=== PATIENT | male | born 1990 | race Caucasian/White ===

== ENCOUNTER 2017-03-14 18:01 | Inpatient (IN) | payer SELFPAY ==
[~2017-03-14] VITALS: Ht 177.8 cm; Wt 74.8 kg
[~2017-03-14 18:01] MED LIST: ZOFR4TAB3 SL
[2017-03-14 18:03] VITALS: BP 132/78; PULSE 84; RESP 16; TEMP 98.4; O2SAT 100
[2017-03-14] MEDS ORDERED: TETANUS/DIPHTHERIA TOXOID ADULT 0.5 ML VIAL IM ONE (19:30)
[2017-03-14] MEDS ORDERED: IBUPROFEN 800 MG TAB PO ONE (19:30)
--- NOTE | 2017-03-14 19:33 | PD ---
HPI Chief Complaint: Skin Problem Time Seen by Provider: 19:08 Travel History International Travel<30 days: No Contact w/Intl Traveler<30days: No Traveled to known affect area: No History of Present Illness HPI 27-year-old male with no significant medical history presents to emergency department for evaluation of injury sustained to his right foot. Patient was in the water when he stepped on an oyster bed. Oyster shell broke off in his foot. He went to the urgent care, x-ray imaging was complete, and they sent him here to the emergency department for further evaluation. Patient reports severe pain, exacerbated with ambulation of the right foot. It is constant. It does not radiate anywhere. Patient is not up-to-date on his tetanus vaccination. Patient last ate over 8 hours ago. He has no other symptoms to report. [facility] Past Medical History Medical History: Denies Significant Hx Diminished Hearing: No Past Surgical History Surgical History: No Previous Surgery Social History Alcohol Use: Yes (rarely) Tobacco Use: Yes (1/2 ppd) Substance Use: No Allergies-Medications (Allergen,Severity, Reaction): Coded Allergies: penicillin G (Unverified Allergy, Unknown, 03/14/17) Reported Meds & Prescriptions Reported Meds & Active Scripts Active No Active Prescriptions or Reported Medications Review of Systems Except as stated in HPI: all other systems reviewed are Neg Physical Exam Narrative GENERAL: Well-nourished male patient, ambulatory no acute distress SKIN: Focused skin assessment warm/dry. 1-1/2 cm laceration on the plantar surface of the right midfoot. Bleeding is controlled. HEAD: Atraumatic. Normocephalic. EYES: Pupils equal and round. No scleral icterus. No injection or drainage. ENT: No nasal bleeding or discharge. Mucous membranes pink and moist. NECK: Trachea midline. No JVD. CARDIOVASCULAR: Regular rate and rhythm. No murmur appreciated. RESPIRATORY: No accessory muscle use. Clear to auscultation. Breath sounds equal bilaterally. GASTROINTESTINAL: Abdomen soft, non-tender, nondistended. Hepatic and splenic margins not palpable. MUSCULOSKELETAL: No obvious deformities. No clubbing. No cyanosis. No edema. Flexion of the foot elicits pain, there is tenderness with palpation around the laceration site. Distal pulses are palpable. Cap refills within normal limits. NEUROLOGICAL: Awake and alert. No obvious cranial nerve deficits. Motor grossly within normal limits. Normal speech. PSYCHIATRIC: Appropriate mood and affect; insight and judgment normal. Data Data Last Documented VS Vital Signs Date Time Temp Pulse Resp B/P (MAP) Pulse Ox O2 Delivery O2 Flow Rate FiO2 03/14/17 18:03 98.4 84 16 132/78 (96) 100 Room Air Orders Orders Foot, Limited (2vws) (03/14/17 ) Tetanus/Diphtheria Tox Adult (Tetanus/Di (03/14/17 19:30) Ibuprofen (Motrin) (03/14/17 19:30) Iv Access Insert/Monitor (03/14/17 20:19) Complete Blood Count With Diff (03/14/17 20:19) Basic Metabolic Panel (Bmp) (03/14/17 20:19) Coag Profile (03/14/17 20:19) Npo After Midnight W/ Po Meds (03/15/17 Breakfast) Consult Podiatry (03/14/17 ) Ct Foot W/O Contrast (03/14/17 ) Morphine Inj (Morphine Inj) (03/14/17 20:30) Ondansetron Inj (Zofran Inj) (03/14/17 20:30) Levofloxacin 750 Mg Premix Inj (Levaquin (03/14/17 21:00) Labs Laboratory Tests Test 03/14/17 20:30 White Blood Count 12.3 TH/MM3 Red Blood Count 4.86 MIL/MM3 Hemoglobin 14.8 GM/DL Hematocrit 43.1 % Mean Corpuscular Volume 88.6 FL Mean Corpuscular Hemoglobin 30.4 PG Mean Corpuscular Hemoglobin Concent 34.3 % Red Cell Distribution Width 12.9 % Platelet Count 281 TH/MM3 Mean Platelet Volume 8.9 FL Neutrophils (%) (Auto) 68.5 % Lymphocytes (%) (Auto) 20.0 % Monocytes (%) (Auto) 8.5 % Eosinophils (%) (Auto) 2.1 % Basophils (%) (Auto) 0.9 % Neutrophils # (Auto) 8.4 TH/MM3 Lymphocytes # (Auto) 2.5 TH/MM3 Monocytes # (Auto) 1.0 TH/MM3 Eosinophils # (Auto) 0.3 TH/MM3 Basophils # (Auto) 0.1 TH/MM3 CBC Comment DIFF FINAL Differential Comment Prothrombin Time 11.1 SEC Prothromb Time International Ratio 1.0 RATIO Activated Partial Thromboplast Time 26.9 SEC Blood Urea Nitrogen 14 MG/DL Creatinine 0.97 MG/DL Random Glucose 78 MG/DL Calcium Level 8.8 MG/DL Sodium Level 140 MEQ/L Potassium Level 3.9 MEQ/L Chloride Level 103 MEQ/L Carbon Dioxide Level 30.5 MEQ/L Anion Gap 7 MEQ/L Estimat Glomerular Filtration Rate 94 ML/MIN MDM Medical Decision Making Medical Screen Exam Complete: Yes Emergency Medical Condition: Yes Medical Record Reviewed: Yes Differential Diagnosis Laceration superficial versus deep versus foreign body versus tendon injury Narrative Course 27-year-old male presents prescribed for evaluation of a foreign body in his right foot. Patient stepped on an oyster shell approximately 2 hours ago. X- ray imaging is complete. Patient is updated on his tetanus vaccination and treated for pain. Last Impressions Lower Extremity CT 03/14/17 0000 Signed Impressions: Service Date/Time: Tuesday, March 14, 2017 20:55 - CONCLUSION: Relatively large collection of foreign bodies in the plantar soft tissues of the right mid foot as described above. The deep margin of the foreign bodies is 22 mm beneath the skin and embedded within the flexor digitorum brevis muscle belly. Felix Corona MD Foot X-Ray 03/14/17 0000 Signed Impressions: Service Date/Time: Tuesday, March 14, 2017 19:34 - CONCLUSION: Conglomerate of radiopaque foreign bodies in the plantar soft tissues of the right midfoot. Felix Corona MD I discussed the patient with my attending physician who recommends Levaquin for vibrio coverage. I have discussed the patient with Dr. Campos, podiatry jewelry consultant. He requests an antibiotic coverage, admission to medicine, nothing by mouth after midnight for surgical intervention tomorrow morning. Plan is discussed with the patient and his mother. They are in agreement with this plan of care. Labs ordered for preop clearance. Laboratory Tests Test 03/14/17 20:30 White Blood Count 12.3 TH/MM3 Red Blood Count 4.86 MIL/MM3 Hemoglobin 14.8 GM/DL Hematocrit 43.1 % Mean Corpuscular Volume 88.6 FL Mean Corpuscular Hemoglobin 30.4 PG Mean Corpuscular Hemoglobin Concent 34.3 % Red Cell Distribution Width 12.9 % Platelet Count 281 TH/MM3 Mean Platelet Volume 8.9 FL Neutrophils (%) (Auto) 68.5 % Lymphocytes (%) (Auto) 20.0 % Monocytes (%) (Auto) 8.5 % Eosinophils (%) (Auto) 2.1 % Basophils (%) (Auto) 0.9 % Neutrophils # (Auto) 8.4 TH/MM3 Lymphocytes # (Auto) 2.5 TH/MM3 Monocytes # (Auto) 1.0 TH/MM3 Eosinophils # (Auto) 0.3 TH/MM3 Basophils # (Auto) 0.1 TH/MM3 CBC Comment DIFF FINAL Differential Comment Prothrombin Time 11.1 SEC Prothromb Time International Ratio 1.0 RATIO Activated Partial Thromboplast Time 26.9 SEC Blood Urea Nitrogen 14 MG/DL Creatinine 0.97 MG/DL Random Glucose 78 MG/DL Calcium Level 8.8 MG/DL Sodium Level 140 MEQ/L Potassium Level 3.9 MEQ/L Chloride Level 103 MEQ/L Carbon Dioxide Level 30.5 MEQ/L Anion Gap 7 MEQ/L Estimat Glomerular Filtration Rate 94 ML/MIN Lab work is without acute concern. [facility] Diagnosis Primary Impression: Laceration of right foot with foreign body Qualified Codes: S91.321A - Laceration with foreign body, right foot, initial encounter Scripts No Active Prescriptions or Reported Meds Condition: Stable Esme Jones Mar 14, 2017 19:33
--- NOTE | 2017-03-14 20:04 | RADRPT ---
EXAM DATE/TIME: 03/14/2017 19:34 [facility] COMPARISON: No previous studies available for comparison. INDICATIONS : Right foot foreign body after stepping on a shell. MEDICAL HISTORY : None. SURGICAL HISTORY : None. ENCOUNTER: Initial ACUITY: 1 day PAIN SCORE: 10/10 LOCATION: Right mid foot. FINDINGS: Several radiopaque foreign body fragments are seen in the plantar aspect of the mid foot soft tissues . The largest foreign body is approximately 10 x 20 mm in size and is approximately 4 mm beneath the skin. Its deep margin is just a few millimeters away from the base of the third metatarsal. CONCLUSION: Conglomerate of radiopaque foreign bodies in the plantar soft tissues of the right midfoot. Felix Corona MD on March 14, 2017 at 20:02 Board Certified Radiologist. This report was verified electronically.
[2017-03-14] MEDS ORDERED: MORPHINE SULFATE 4 MG/ML INJ IV PUSH ONE (20:30)
[2017-03-14] MEDS ORDERED: ONDANSETRON HCL 4 MG/2 ML VIAL IV PUSH ONE (20:30)
[2017-03-14] MEDS ORDERED: LEVOFLOXACIN 750 MG PREMIX INJ 150 ML IV ONE (21:00)
[2017-03-14 21:36] LABS: AUTOMATED NEUTROPHIL # 8.4 TH/MM3 (1.8-7.7); BASOPHIL # 0.1 TH/MM3 (0-0.2); BASOPHIL % 0.9 % (0.0-2.0); EOSINOPHIL # 0.3 TH/MM3 (0-0.4); EOSINOPHIL % 2.1 % (0.0-4.0); HEMATOCRIT 43.1 % (39.0-51.0); HEMO FLAGS DIFF FINAL; LYMPHOCYTE # 2.5 TH/MM3 (1.0-4.8); MEAN CELL VOLUME 88.6 FL (80.0-100.0); MEAN CORPUSCULAR HEMOGLOBIN 30.4 PG (27.0-34.0); MEAN CORPUSCULAR HGB CONC 34.3 % (32.0-36.0); MONO % 8.5 % (0.0-8.0); NEUT % 68.5 % (16.0-70.0); PLATELET COUNT 281 TH/MM3 (150-450); RED BLOOD COUNT 4.86 MIL/MM3 (4.50-5.90); RED CELL DISTRIBUTION WIDTH 12.9 % (11.6-17.2); WHITE BLOOD COUNT 12.3 TH/MM3 (4.0-11.0)
--- NOTE | 2017-03-14 21:41 | RADRPT ---
EXAM DATE/TIME: 03/14/2017 20:55 [facility] COMPARISON: No previous studies available for comparison. INDICATIONS : Evaluate foriegn body. RADIATION DOSE: 7.29 CTDIvol (mGy) MEDICAL HISTORY : None SURGICAL HISTORY : None. ENCOUNTER: Initial ACUITY: 1 day PAIN SCALE: 10/10 LOCATION: Right foot TECHNIQUE: Volumetric scanning of the foot was performed. Using automated exposure control and adjustment of th e mA and/or kV according to patient size, radiation dose was kept as low as reasonably achievable to obtain optimal diagnostic quality images. DICOM format image data is available electronically for re view and comparison. FINDINGS: An irregular collection of radiopaque foreign bodies measuring roughly 9 x 9 x 19 mm in size is seen in the plantar soft tissues of the right midfoot. The foreign bodies are plantar to the lateral cunei form and cuboid. Superficial margin of the foreign bodies just beneath the skin. The deep margin of t he foreign bodies is approximately 2.2 cm deep to the skin and 5 mm away from the cuboid, embedded in the flexor digitorum brevis muscle belly. No fracture seen. 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 CONCLUSION: Relatively large collection of foreign bodies in the plantar soft tissues of the right mid foot as de scribed above. The deep margin of the foreign bodies is 22 mm beneath the skin and embedded within th e flexor digitorum brevis muscle belly. Felix Corona MD on March 14, 2017 at 21:35 Board Certified Radiologist. This report was verified electronically.
[2017-03-14 21:46] LABS: APTT (PATIENT) 26.9 SEC (24.3-30.1); PROTHROMBIN TIME - PATIENT 11.1 SEC (9.8-11.6)
[2017-03-14 21:58] LABS: BICARBONATE 30.5 MEQ/L (21.0-32.0); POTASSIUM 3.9 MEQ/L (3.5-5.1)
[2017-03-14] MEDS ORDERED: NALOXONE HCL 0.4 MG/ML AMP IV PUSH PRN (22:30)
[2017-03-14] MEDS ORDERED: SODIUM CHLORIDE 0.9% FLUSH 10 ML FLUSH IV FLUSH PRN (22:30)
[2017-03-14] MEDS: SODIUM CHLOR 0.9% 1000 ML INJ 1,000 ML IV SCH (23:24)
[2017-03-15] VITALS (7 sets, daily range): BP systolic 106–120; BP diastolic 57–75; PULSE 53–80; RESP 16–20; TEMP 97.3–98; O2SAT 99–100
[2017-03-15] MEDS: MORPHINE SULFATE 4 MG/ML INJ IV PUSH PRN ×2 (01:37→22:21)
--- NOTE | 2017-03-15 02:02 | HHI.HP ---
[facility] Service [facility] Primary Care Physician No Primary Care Physician Admission Diagnosis FOREIGN BODIES R FOOT Diagnoses: Chief Complaint: R foot pain Travel History International Travel<30 Days: No Contact w/Intl Traveler <30 Da: No Traveled to Known Affected Are: No History of Present Illness 27 y/o male with no medical history presented to the ED with right foot pain. Patient states he was swimming at the beach and stepped on a shell. He states his pain is throbbing and a 10/10 when he puts pressure on it. Denies any chest pain, sob, fever or chills. Review of Systems Except as stated in HPI: all other systems reviewed are Neg Past Family Social History Past Medical History Patient denies any medical history Past Surgical History Patient denies any surgical history Reported Medications Reported Meds & Active Scripts Active No Active Prescriptions or Reported Medications Allergies: Coded Allergies: penicillin G (Unverified Allergy, Unknown, 03/14/17) Active Ordered Medications Current Medications Medications (Trade) Dose Ordered Sig/Luis Route Start Time Stop Time Status Last Admin Sodium Chloride 1,000 ml @ 100 mls/hr Q10H IV 03/14/17 22:26 03/14/17 23:24 (NS Flush) 2 ml UNSCH PRN IV FLUSH 03/14/17 22:30 (NS Flush) 2 ml BID IV FLUSH 03/15/17 09:00 (Narcan Inj) 0.4 mg UNSCH PRN IV PUSH 03/14/17 22:30 (Morphine Inj) 2 mg Q3H PRN IV PUSH 03/14/17 22:30 03/15/17 01:37 Levofloxacin/ Dextrose 150 ml @ 100 mls/hr Q24H IV 03/15/17 21:00 Family History Patient denies any family history, no heart disease or cancer. Social History Tobacco use: 1/2 PPD Alcohol use: Denies Illicit drug use: Denies Physical Exam Vital Signs Vital Signs Date Time Temp Pulse Resp B/P (MAP) Pulse Ox O2 Delivery O2 Flow Rate FiO2 03/15/17 00:50 03/14/17 18:03 98.4 84 16 132/78 (96) 100 Room Air Physical Exam GENERAL: This is a well-nourished, well-developed patient, in no apparent distress. SKIN: Laceration to plantar side of right foot, with dried blood. HEAD: Atraumatic. Normocephalic. EYES: Pupils equal round and reactive. ENT: Nose without bleeding, purulent drainage or septal hematoma. Airway patent. NECK: Trachea midline. No JVD or lymphadenopathy. CARDIOVASCULAR: Regular rate and rhythm without murmurs, gallops, or rubs. RESPIRATORY: Clear to auscultation. Breath sounds equal bilaterally. No wheezes , rales, or rhonchi. GASTROINTESTINAL: Abdomen soft, non-tender, nondistended. No hepato-splenomegaly , or palpable masses. No guarding. MUSCULOSKELETAL: Extremities without clubbing, cyanosis, or edema. Right foot pain. No calf tenderness. NEUROLOGICAL: Awake and alert. Motor and sensory grossly within normal limits.Normal speech. Laboratory Laboratory Tests Test 03/14/17 20:30 White Blood Count 12.3 Red Blood Count 4.86 Hemoglobin 14.8 Hematocrit 43.1 Mean Corpuscular Volume 88.6 Mean Corpuscular Hemoglobin 30.4 Mean Corpuscular Hemoglobin Concent 34.3 Red Cell Distribution Width 12.9 Platelet Count 281 Mean Platelet Volume 8.9 Neutrophils (%) (Auto) 68.5 Lymphocytes (%) (Auto) 20.0 Monocytes (%) (Auto) 8.5 Eosinophils (%) (Auto) 2.1 Basophils (%) (Auto) 0.9 Neutrophils # (Auto) 8.4 Lymphocytes # (Auto) 2.5 Monocytes # (Auto) 1.0 Eosinophils # (Auto) 0.3 Basophils # (Auto) 0.1 CBC Comment DIFF FINAL Differential Comment Prothrombin Time 11.1 Prothromb Time International Ratio 1.0 Activated Partial Thromboplast Time 26.9 Blood Urea Nitrogen 14 Creatinine 0.97 Random Glucose 78 Calcium Level 8.8 Sodium Level 140 Potassium Level 3.9 Chloride Level 103 Carbon Dioxide Level 30.5 Anion Gap 7 Estimat Glomerular Filtration Rate 94 Result Diagram: 03/14/17202903/14/17 2030 Imaging Last Impressions Lower Extremity CT 03/14/17 0000 Signed Impressions: Service Date/Time: Tuesday, March 14, 2017 20:55 - CONCLUSION: Relatively large collection of foreign bodies in the plantar soft tissues of the right mid foot as described above. The deep margin of the foreign bodies is 22 mm beneath the skin and embedded within the flexor digitorum brevis muscle belly. Felix Corona MD Foot X-Ray 03/14/17 0000 Signed Impressions: Service Date/Time: Tuesday, March 14, 2017 19:34 - CONCLUSION: Conglomerate of radiopaque foreign bodies in the plantar soft tissues of the right midfoot. Felix Corona MD Caprini VTE Risk Assessment Caprini VTE Risk Assessment: No/Low Risk (score <= 1) Caprini Risk Assessment Model Point Value = 1 Point Value = 2 Point Value = 3 Point Value = 5 Age 41-60 Minor surgery BMI > 25 kg/m2 Swollen legs Varicose veins or History of unexplained or recurrent spontaneous Oral contraceptives or hormone replacement Sepsis (< 1 month) Serious lung disease, including pneumonia (< 1 month) Abnormal pulmonary function Acute myocardial infarction Congestive heart failure (< 1 month) History of inflammatory bowel disease Medical patient at bed rest Age 61-74 Arthroscopic surgery Major open surgery (> 45 min) Laparoscopic surgery (> 45 min) Malignancy Confined to bed (> 72 hours) Immobilizing plaster cast Central venous access Age >= 75 History of VTE Family history of VTE Factor V Leiden Prothrombin [id number] Lupus anticoagulant Anticardiolipin antibodies Elevated serum homocysteine Heparin-induced thrombocytopenia Other congenital or acquired thrombophilia Stroke (< 1 month) Elective arthroplasty Hip, pelvis, or leg fracture Acute spinal cord injury (< 1 month) Prophylaxis Regimen Total Risk Factor Score Risk Level Prophylaxis Regimen 0-1 Low Early ambulation 2 Moderate Order ONE of the following: *Sequential Compression Device (SCD) *Heparin 5000 units SQ BID 3-4 Higher Order ONE of the following medications: *Heparin 5000 units SQ TID *Enoxaparin/Lovenox 40 mg SQ daily (WT < 150 kg, CrCl > 30 mL/min) *Enoxaparin/Lovenox 30 mg SQ daily (WT < 150 kg, CrCl > 10-29 mL/min) *Enoxaparin/Lovenox 30 mg SQ BID (WT < 150 kg, CrCl > 30 mL/min) AND/OR *Sequential Compression Device (SCD) 5 or more Highest Order ONE of the following medications: *Heparin 5000 units SQ TID (Preferred with Epidurals) *Enoxaparin/Lovenox 40 mg SQ daily (WT < 150 kg, CrCl > 30 mL/min) *Enoxaparin/Lovenox 30 mg SQ daily (WT < 150 kg, CrCl > 10-29 mL/min) *Enoxaparin/Lovenox 30 mg SQ BID (WT < 150 kg, CrCl > 30 mL/min) AND *Sequential Compression Device (SCD) Assessment and Plan Problem List: (1) Laceration of right foot with foreign body ICD Code: S91.321A - Laceration with foreign body, right foot, initial encounter Status: Acute Assessment and Plan 27 y/o male with no medical history presented to the ED with right foot pain. Laceration of right foot with foreign body Lower extremity CT reviewed and shows a large collection of foreign bodies in the plantar soft tissues of the mid right foot, 22 mm beneath the skin and embedded. -Consult podiatry, surgery planned for am -NPO -IV antibiotics: Levaquin -Pain management with Morphine IV Leukocytosis, wbc 12.3 -Cont antibiotics as above -Labs in AM DVT prophylaxis: SCDs Discussed Condition With Patient Physician Certification 2 Midnight Certification Type: Admission for Inpatient Services Order for Inpatient Services The services are ordered in accordance with Medicare regulations or non- Medicare payer requirements, as applicable. In the case of services not specified as inpatient-only, they are appropriately provided as inpatient services in accordance with the 2-midnight benchmark. Estimated LOS (days): 2 days is the estimated time the patient will need to remain in the hospital, assuming treatment plan goals are met and no additional complications. Post-Hospital Plan: Home Problem Qualifiers (1) Laceration of right foot with foreign body: Qualified Codes: S91.321A - Laceration with foreign body, right foot, initial encounter Danay Dillard Mar 15, 2017 02:02
[2017-03-15 08:00] LABS: AUTOMATED NEUTROPHIL # 5.8 TH/MM3 (1.8-7.7); BASOPHIL # 0.1 TH/MM3 (0-0.2); BASOPHIL % 0.8 % (0.0-2.0); EOSINOPHIL # 0.3 TH/MM3 (0-0.4); EOSINOPHIL % 2.9 % (0.0-4.0); HEMATOCRIT 39.1 % (39.0-51.0); HEMO FLAGS DIFF FINAL; LYMPH % 23.4 % (9.0-44.0); LYMPHOCYTE # 2.2 TH/MM3 (1.0-4.8); MEAN CELL VOLUME 88.5 FL (80.0-100.0); MEAN CORPUSCULAR HEMOGLOBIN 30.4 PG (27.0-34.0); MEAN CORPUSCULAR HGB CONC 34.3 % (32.0-36.0); NEUT % 62.9 % (16.0-70.0); PLATELET COUNT 218 TH/MM3 (150-450); RED BLOOD COUNT 4.41 MIL/MM3 (4.50-5.90); WHITE BLOOD COUNT 9.3 TH/MM3 (4.0-11.0)
[2017-03-15] MEDS: SODIUM CHLOR 0.9% 1000 ML INJ 1,000 ML IV SCH (08:26)
[2017-03-15 08:28] LABS: BICARBONATE 28.3 MEQ/L (21.0-32.0); POTASSIUM 4.1 MEQ/L (3.5-5.1)
[2017-03-15] MEDS ORDERED: LACTULOSE SYRUP 20 GM/30 ML CUP PO PRN (09:00)
[2017-03-15] MEDS: SODIUM CHLORIDE 0.9% FLUSH 10 ML FLUSH IV FLUSH SCH ×2 (09:00→20:43)
[2017-03-15] MEDS ORDERED: ONDANSETRON HCL 4 MG/2 ML VIAL IVP PRN (09:00)
[2017-03-15] MEDS: DOCUSATE SODIUM 50 MG/SENNA 8.6 MG TAB PO SCH ×2 (09:00→20:42)
[2017-03-15] MEDS ORDERED: SENNOSIDES 8.6 MG TAB PO PRN (09:00)
[2017-03-15] MEDS ORDERED: MAGNESIUM HYDROXIDE SUSP 30 ML CUP PO PRN (09:00)
[2017-03-15] MEDS ORDERED: ACETAMINOPHEN 325 MG TAB PO PRN ×2 (09:00)
[2017-03-15] MEDS ORDERED: BISACODYL 10 MG SUPP RECTAL PRN (09:00)
[2017-03-15] MEDS ORDERED: ACETAMINOPHEN/HYDROcodone 325 MG/5 MG TAB PO PRN (09:00)
--- NOTE | 2017-03-15 09:38 | HHI.FF ---
Face to Face Verification Diagnosis: (1) Laceration of right foot with foreign body Physical Therapy Order: Evaluate and Treat, Improve ambulation, Strength and gait training I have seen patient Michael Pierson on 03/15/17. My clinical findings support the need for the requested home health care services because: Ltd mobility - disease progression I certify that my clinical findings support that this patient is homebound because: Unsteady gait/balance Unsafe to leave home unassisted Pop Reyes MD Mar 15, 2017 09:38
--- NOTE | 2017-03-15 09:38 | HHI.DCPOC ---
Discharge Care Plan Diagnosis: (1) Laceration of right foot with foreign body Your Health Problems Are: Difficulty with ADL Exercise Tolerance Goals to Promote Your Health * To prevent worsening of your condition and complications * To maintain your health at the optimal level Directions to Meet Your Goals Take your medications as prescribed Follow your dietary instruction Follow activity as directed Keep your appointments as scheduled Take your immunizations and boosters as scheduled If your symptoms worsen call your PCP, if no PCP go to Urgent Care Center or Emergency Room Smoking is Dangerous to Your Health. Avoid second hand smoke Call the 24-hour hour crisis hotline for domestic abuse at Pop Reyes MD Mar 15, 2017 09:38
[2017-03-15] MEDS ORDERED: CRUTMIS35 (09:39)
[2017-03-15] MEDS: ACETAMINOPHEN/HYDROcodone 325 MG/7.5 MG TAB PO PRN ×2 (11:29→20:42)
[2017-03-15] MEDS ORDERED: ONDANSETRON HCL 4 MG/2 ML VIAL IV PUSH ONE (12:00)
[2017-03-15] MEDS ORDERED: DEXAMETHASONE SOD PHOS 4 MG/ML VIAL IV ONE (12:00)
[2017-03-15] MEDS ORDERED: PROPOFOL 200 MG/20 ML AMP IV ONE (12:00)
[2017-03-15] MEDS ORDERED: LIDOCAINE HCL 1% PF 5 ML AMPULE OTHER ONE (12:00)
[2017-03-15] MEDS ORDERED: MIDAZOLAM HCL 2 MG/2 ML VIAL IV ONE (12:00)
--- NOTE | 2017-03-15 14:47 | HHI.PR ---
Subjective Remarks Follow-up right foot injury. He is doing okay awaiting surgical intervention. Seen with mother. Discussed with RN Objective Vitals Vital Signs Date Time Temp Pulse Resp B/P (MAP) Pulse Ox O2 Delivery O2 Flow Rate FiO2 03/15/17 08:00 97.8 69 20 110/62 (78) 99 03/15/17 04:00 97.9 66 16 106/61 (76) 99 03/15/17 01:00 97.8 80 03/15/17 00:50 03/14/17 18:03 98.4 84 16 132/78 (96) 100 Room Air I/O 03/14/17 03/14/17 03/14/17 03/15/17 03/15/17 03/15/17 07:00 15:00 23:00 07:00 15:00 23:00 Intake Total 0 ml Balance 0 ml Intake Oral 0 ml # Voids 0 # Bowel Movements 0 Result Diagram: 03/15/17 0740 03/15/17 0740 Imaging Last Impressions Lower Extremity CT 03/14/17 0000 Signed Impressions: Service Date/Time: Tuesday, March 14, 2017 20:55 - CONCLUSION: Relatively large collection of foreign bodies in the plantar soft tissues of the right mid foot as described above. The deep margin of the foreign bodies is 22 mm beneath the skin and embedded within the flexor digitorum brevis muscle belly. Felix Corona MD Foot X-Ray 03/14/17 0000 Signed Impressions: Service Date/Time: Tuesday, March 14, 2017 19:34 - CONCLUSION: Conglomerate of radiopaque foreign bodies in the plantar soft tissues of the right midfoot. Felix Corona MD Objective Remarks Well-developed, well-nourished in no distress Pupils equally reactive to light and jaundice No JVD or bruit Equal in expansion clear to auscultation Regular rate and rhythm Abdomen soft nontender Right foot plantar surface with tenderness and dry blood Alert and oriented nonfocal A/P Problem List: (1) Laceration of right foot with foreign body ICD Code: S91.321A - Laceration with foreign body, right foot, initial encounter Status: Acute Assessment and Plan 27 y/o male with no medical history presented to the ED with right foot pain. Laceration of right foot with foreign body Lower extremity CT reviewed and shows a large collection of foreign bodies in the plantar soft tissues of the mid right foot, 22 mm beneath the skin and embedded. -Podiatry for foreign body removal later today -NPO -IV antibiotics: Levaquin -Pain management with Morphine IV and Lortab counseled regarding narcotics Leukocytosis, wbc 12.3 -Cont antibiotics as above -Improving DVT prophylaxis: SCDs Discharge Planning Discharge patient to home possibly later today if stable postoperatively and cleared by podiatry Condition on discharge: Improved Regular Diet as tolerated Activity status of right lower extremity per podiatry Rx written: Doxycycline and Lortab Follow-up with primary care physician in one week Problem Qualifiers (1) Laceration of right foot with foreign body: Qualified Codes: S91.321A - Laceration with foreign body, right foot, initial encounter Pop Reyes MD Mar 15, 2017 14:47
[2017-03-15] MEDS ORDERED: HYDR-3580 PO (14:48)
[2017-03-15] MEDS ORDERED: LIDOCAINE HCL 2% 50 ML VIAL ONE (16:35)
[2017-03-15] MEDS ORDERED: BUPIVACAINE HCL PF 0.5% 30 ML VIAL ONE ×2 (16:35→16:43)
[2017-03-15] MEDS ORDERED: BUPIVACAINE/EPINEPHRINE 0.5% 50 ML VIAL ONE (16:36)
[2017-03-15] MEDS ORDERED: CLINDAMYCIN PHOS 600 MG/4 ML VIAL ONE (17:31)
[2017-03-15] MEDS ORDERED: NEOMYCIN/POLYMYXIN 1 ML G.U. IRRIGANT IRRIGATION ONE (17:55)
[2017-03-15] MEDS ORDERED: DO NOT ADM ANY ANTICOAGULANT DRUGS PRN (18:28)
--- NOTE | 2017-03-15 18:54 | RADRPT ---
EXAM DATE/TIME: 03/15/2017 17:58 [facility] COMPARISON: CT FOOT RIGHT W/O CONTRAST, March 14, 2017, 20:55. FOOT RIGHT LIMITED (2VWS), March 14, 2017 , 19:34. INDICATIONS : Foreign body removal right foot MEDICAL HISTORY : None. SURGICAL HISTORY : None. ENCOUNTER: Subsequent ACUITY: 2 days PAIN SCORE: Non-responsive. LOCATION: Right Foot FINDINGS: Several views in the operating room show interim removal of the previously seen radiopaque foreign ma tter in the plantar soft tissues of the right midfoot. No residual radiopaque foreign body demonstrat ed. Bones are intact and normally aligned. The surgical defect is close to the base of the fifth meta tarsal. CONCLUSION: No residual foreign matter demonstrated. Felix Corona MD on March 15, 2017 at 18:50 Board Certified Radiologist. This report was verified electronically.
[2017-03-15] MEDS ORDERED: LEVOFLOXACIN 750 MG PREMIX INJ 150 ML IV SCH (21:00)
[2017-03-16] VITALS: BP 118/89; PULSE 70; RESP 18; TEMP 97; O2SAT 98
[2017-03-16] MEDS: ACETAMINOPHEN/HYDROcodone 325 MG/7.5 MG TAB PO PRN ×2 (00:48→06:59)
[2017-03-16] MEDS: MORPHINE SULFATE 4 MG/ML INJ IV PUSH PRN ×2 (03:50→09:07)
[2017-03-16 04:00] VITALS: BP 106/56; PULSE 62; RESP 18; TEMP 98.7; O2SAT 99
[2017-03-16] MEDS: SODIUM CHLOR 0.9% 1000 ML INJ 1,000 ML IV SCH (04:26)
--- NOTE | 2017-03-16 05:57 | MB ---
cc: NATALI CAMPOS DPM DATE OF CONSULTATION 03/15/2017 DATE OF 1990 REASON FOR CONSULTATION Right foot foreign body. HISTORY OF PRESENT ILLNESS The patient is 27-year-old male with no past medical history who presented to the ED with foreign body/shell [place] the [place]. He stepped he stepped on it and presented directly. The pain is 10/10 while on his presentation but while seen at bedside this evening was very lax and allowed me to evaluate the foot. He denies any shortness of breath, fever, chills or diarrhea. REVIEW OF SYSTEMS Six point review of systems all negative. PAST MEDICAL HISTORY Unremarkable. MEDICATIONS None. ALLERGIES PENICILLIN. SOCIAL HISTORY Smokes half pack a day. Denies alcohol or illicit drugs. PHYSICAL EXAMINATION DP and PT pulse palpable. Protective sensation grossly intact. Muscle strength was +5/5 in all quadrants. There is a small plantar central opening in the arch with some dried hemorrhagic tissue. There is no active bleeding, no redness, no streaking. No acute sign of infection. LABORATORY DATA WBC on 03/15/2017 9.3, RBC of 4.4. H&H 13.1 and 39.1 IMAGING STUDIES Carried out on 03/14/2017 indicated foreign bodies, several in nature on the plantar aspect of the soft tissue, approximately 2 cm deep to the plantar surface. ASSESSMENT AND PLAN Right foot foreign body. PLAN The plan for this patient is to take him to the OR and removed the foreign bodies, irrigate, close. The risks, benefits, pros and cons were discussed with the patient who consents to surgical intervention. No guarantees were given nor implied. All questions were answered. We will continue to follow the patient while in-house. Natali Campos DPM SR/FISH /10:30 PM /5:43 AM
[2017-03-16 08:00] VITALS: BP 129/66; PULSE 75; RESP 20; TEMP 97.7; O2SAT 100
[2017-03-16] MEDS: DOCUSATE SODIUM 50 MG/SENNA 8.6 MG TAB PO SCH (08:49)
[2017-03-16] MEDS: SODIUM CHLORIDE 0.9% FLUSH 10 ML FLUSH IV FLUSH SCH (08:49)
--- NOTE | 2017-03-16 09:37 | HHI.PR ---
Subjective Remarks Follow-up foreign body right foot. Is doing okay. Reports of pain when out of bed managed with by mouth pain medicines. Counseled regarding narcotics. Discussed with RN Objective Vitals Vital Signs Date Time Temp Pulse Resp B/P (MAP) Pulse Ox O2 Delivery O2 Flow Rate FiO2 03/16/17 04:00 98.7 62 18 106/56 (73) 99 03/16/17 00:00 97.0 70 18 118/89 (99) 98 03/15/17 20:11 63 03/15/17 20:00 97.3 65 18 120/75 (90) 100 03/15/17 18:45 58 16 105/56 (72) 100 Nasal Cannula 2 03/15/17 18:30 59 16 106/58 (74) 99 Nasal Cannula 2 03/15/17 18:26 97.1 66 16 108/57 (74) 100 Nasal Cannula 2 03/15/17 12:00 98.0 70 20 114/57 (76) 99 I/O 03/15/17 03/15/17 03/15/17 03/16/17 03/16/17 03/16/17 07:00 15:00 23:00 07:00 15:00 23:00 Intake Total 0 ml 700 ml Output Total 20 ml 675 ml Balance 0 ml 680 ml -675 ml Intake Oral 0 ml 0 ml Other 700 ml Output Urine Total 675 ml Estimated Blood Loss 20 ml # Voids 0 2 1 # Bowel Movements 0 0 Result Diagram: 03/15/17 0740 03/15/17 0740 Objective Remarks Well-developed, well-nourished in no distress Pupils equally reactive to light and jaundice No JVD or bruit Equal in expansion clear to auscultation Regular rate and rhythm Abdomen soft nontender Right foot with dry dressing Alert and oriented nonfocal Procedures Foreign body removal right foot A/P Problem List: (1) Laceration of right foot with foreign body ICD Code: S91.321A - Laceration with foreign body, right foot, initial encounter Status: Acute Assessment and Plan 27 y/o male with no medical history presented to the ED with right foot pain. Laceration of right foot with foreign body Lower extremity CT reviewed and shows a large collection of foreign bodies in the plantar soft tissues of the mid right foot, 22 mm beneath the skin and embedded. -Status post foreign body removal. Nonweightbearing right lower extremity and dry dressing per podiatry -IV antibiotics: Levaquin -Pain management with Morphine IV and Lortab counseled regarding narcotics Leukocytosis, wbc 12.3 -Cont antibiotics as above -Improved. DVT prophylaxis: SCDs Discharge Planning Discharge patient to home Condition on discharge: Improved Regular Diet as tolerated Nonweightbearing right lower extremity Rx written: Ingalls #30, clindamycin #. 28 and Cipro # 28 Follow-up with primary care physician and podiatry in one week Problem Qualifiers (1) Laceration of right foot with foreign body: Qualified Codes: S91.321A - Laceration with foreign body, right foot, initial encounter Pop Reyes MD Mar 16, 2017 09:37
--- NOTE | 2017-03-16 10:53 | MP ---
cc: NATALI CAMPOS DPM DATE OF SURGERY 03/15/2017 DATE OF 1990 SURGEON Natali Campos DPM PREOPERATIVE DIAGNOSIS Right foot foreign body POSTOPERATIVE DIAGNOSIS Right foot foreign body PROCEDURE Right foot foreign body excision ANESTHESIA LMA HEMOSTASIS Right ankle tourniquet 250 mmHg for 25 minutes. ESTIMATED BLOOD LOSS Less than 3 cc MATERIALS 2-0 Vicryl, 3-0 nylon. INJECTABLES Postoperatively 20 cc of a one-to-one mixture of 2% lidocaine plain along with 0.5% Marcaine plain. BRIEF HISTORY The patient is a 27-year-old male who sustained a laceration and foreign body on his right [place] the [place]. He presented to the ED, was evaluated, subsequently admitted and consented for surgical intervention. No guarantees were given or implied. All questions were answered. The risks, benefits, pros and cons were discussed with the patient. He freely consented to surgical intervention. PROCEDURE IN DETAIL The patient brought into the operating room, placed on the operating room table in the supine position. After LMA was administered, the right foot was prepped and draped in the usual sterile aseptic manner. The right ankle block was carried out using 20 cc of a one-to-one mixture of 2% lidocaine plain along with 0.5% Marcaine plain. The right foot was then exsanguinated and the tourniquet inflated up to 250 mmHg. Using the of foreign body laceration on the plantar aspect of the foot, the incision was extended both distal and proximal to encompass approximately a 4 cm incision. Using a hemostat and blunt dissection, the foreign bodies were identified, removed in total. A culture was taken. Intraoperative fluoroscopy was taken to indicate removal of all of the foreign bodies. The incision was then copiously irrigated with normal sterile saline impregnated with two units of . The patient was given 600 of clindamycin preoperatively. He is also on Levaquin while in-house. The incision was then closed in layers using 2-0 Vicryl and 3-0 nylon. A postop block was carried out with an area block using 20 cc of a one-to-one mixture of 2% lidocaine plain along with 0.5% Marcaine plain. The tourniquet was deflated after 25 minutes with prompt type response at 25 on right. Dry sterile dressings applied using Xeroform, 4x4s, Ruben and a light Coban. The patient will be transferred to the PACU for a brief period of postop monitoring after which he will be transferred to the floor. The patient tolerated the procedure to completion. He will be followed up appropriately while in-house and discharged on 03/16 2017. Natali Campos DPM SR/JAVI /10:33 PM /10:37 AM
[2017-03-16] MEDS ORDERED: NORC5TAB PO (11:31)
[2017-03-16] MEDS ORDERED: CLIN1CAP5 PO (11:34)
[2017-03-16] MEDS ORDERED: CIPR250T2 PO (11:35)
== END 2017-03-16 12:12 | disposition home or self-care (01) | DRG 914 ==
LOC: NEPK 18:01 → NEDA 22:37 → N04B 03-15 01:04
PROVIDERS: ADMIT Internal Medicine; ATTEND Internal Medicine
PROC: 0JCQ0ZZ Extirpation of Matter from Right Foot Subcutaneous Tissue and Fascia, Open Approach (ICD-10-PCS; principal; 2017-03-15 17:22)
DX: S91.321A Laceration with foreign body, right foot, initial encounter (principal); F17.210 Nicotine dependence, cigarettes, uncomplicated; W45.8XXA Other foreign body or object entering through skin, initial encounter; Y92.832 Beach as the place of occurrence of the external cause; W22.8XXA Striking against or struck by other objects, initial encounter
CPT/HCPCS: 73620; 73630; 73700; 76000; 80048; 85025; 85610; 85730; 87015; 87070; 87102; 87116; 87205; 87206; 87641; 88304; 88305; 90471; 90714; 96374; 96375; E0113; J1100; J1956; J2250; J2270; J2405; J3010; J7030